=== PATIENT | female | born 1995 | race Caucasian/White ===

== ENCOUNTER 2017-10-05 13:50 | Emergency (ER) | payer BC ==
--- NOTE | 2017-10-05 14:27 | EDM.PDOC ---
ED HPI GENERAL MEDICAL PROBLEM - General Chief Complaint: ENT Problem Stated Complaint: SORE THROAT Time Seen by Provider: 10/05/17 14:22 Source of Information: Reports: Patient History Limitations: Reports: No Limitations - History of Present Illness INITIAL COMMENTS - FREE TEXT/NARRATIVE: HISTORY AND PHYSICAL: []22-year-old female presenting with pain to her throat and her left ear History of Present Illness: []Patient was seen at [facility] this morning. She was diagnosed with strep throat and ear infection started on amoxicillin 875 mg. Patient states that the pain is too much at this point and wants some relief . Review of Systems: As per history of present illness and below otherwise all systems reviewed and negative. Past medical history: As per history of present illness and as reviewed below otherwise noncontributory. Surgical history: As per history of present illness and as reviewed below otherwise noncontributory. Social history: No reported history of drug or alcohol abuse. Family history: As per history of present illness and as reviewed below otherwise noncontributory. Physical exam: Alert and oriented female acting age-appropriate she is speaking in full sentences very softly without shortness of breath. She is nontoxic in appearance HEENT: Atraumatic, normocehpalic, pupils reactive, negative for conjunctival pallor or scleral icterus, mucous membranes moist, throat mild erythema, neck supple, tender, trachea midline. Lungs: Clear to auscultation, breath sounds equal bilaterally, chest non tender. Anterior cervical adenopathy is easily palpable. Left tympanic membrane erythematous significant effusion. She material noted posterior of the tympanic membrane landmarks are not visualized. Mild erythema to canal. Right tympanic membrane slightly dull but landmarks were visualized. Heart: S1S2, regular, negative for clicks, rubs, or JVD. Abdomen: Soft, nondistended, nontender. Negative for masses or hepatossplenmegaly. Negative for costovertebral tenderness. Pelvis: Stable nontender. Genitourinary: Deferred. Rectal: Deferred Extremities: Atraumatic, negative for cords or calf pain. Neurovascular unremarkable. Neuro: Awake, alert, oriented. Cranial nerves II through XII unremarkable. Cerebellum unremarkable. Motor and sensory unremarkable throughout. Exam nonfocal. Diagnostics: [] Therapeutics: []Toradol 60 IM Liquid Tylenol Impression: []Otalgia Otitis media with effusion Strep throat Plan: [] Discharge home Cortisporin otic drops to left ear Definitive disposition and diagnosis as appropriate pending reevaluation and review of above. Onset: Gradual Duration: Day(s): (3) Location: Reports: Head, Abdomen Quality: Reports: Ache, Stabbing, Throbbing Severity: Moderate Improves with: Reports: None Worsens with: Reports: None Associated Symptoms: Reports: Fever/Chills - Related Data Allergies Allergy/AdvReac Type Severity Reaction Status Date / Time Sulfa (Sulfonamide Allergy Rash Verified 02/08/16 20:03 Antibiotics) Home Meds: Home Meds Hydrocort/Neomycin/Polymyxin B [Cortisporin Ophth Susp] 2 drop EARLF Q6H #1 bottle 10/05/17 [Rx] Past Medical History - Past Health History Medical/Surgical History: Denies Medical/Surgical History HEENT History: Reports: None Cardiovascular History: Reports: None Respiratory History: Reports: None Gastrointestinal History: Reports: None Genitourinary History: Reports: None PHYSICIAN PRACTICE ADMINISTRATOR History: Reports: None Endocrine/Metabolic History: Reports: None - Infectious Disease History Infectious Disease History: Reports: None - Past Surgical History HEENT Surgical History: Reports: None Musculoskeletal Surgical History: Reports: None ED ROS ENT - Review of Systems Review Of Systems: ROS reveals no pertinent complaints other than HPI. ED EXAM, ENT - Physical Exam Exam: See Below (see dictation) Course - Orders/Labs/Meds Meds: Medications Discontinued Medications Generic Name Dose Route Start Last Admin Trade Name Freq PRN Reason Stop Dose Admin Acetaminophen/Codeine Phosphate 5 ml 10/05/17 14:28 Tylenol/Codeine 120-12 Mg/5 Ml PO 10/05/17 14:29 ONETIME ONE Departure - Departure Time of Disposition: 14:30 Disposition: Home, Self-Care 01 Condition: Good Clinical Impression: Otitis media Qualifiers: Otitis media type: unspecified Chronicity: acute Qualified Code(s): H66.90 - Otitis media, unspecified, unspecified ear - Discharge Information Prescriptions: Hydrocort/Neomycin/Polymyxin B [Cortisporin Ophth Susp] 2 drop EARLF Q6H #1 bottle Instructions: Ear Drops, Adult, [id number], Otitis Media, Adult, [id number] Referrals: PCP,None [Primary Care Provider] - Forms: ED Department Discharge Additional Instructions: The following information is given to patients seen in the emergency department who are being discharged to home. This information is to outline your options for follow-up care. We provide all patients seen in our emergency department with a follow-up referral. The need for follow-up, as well as the timing and circumstances, are variable depending upon the specifics of your emergency department visit. If you don't have a primary care physician on staff, we will provide you with a referral. We always advise you to contact your personal physician following an emergency department visit to inform them of the circumstance of the visit and for follow-up with them and/or the need for any referrals to a consulting specialist. The emergency department will also refer you to a specialist when appropriate. This referral assures that you have the opportunity for followup care with a specialist. All of these measure are taken in an effort to provide you with optimal care, which includes your followup. Under all circumstances we always encourage you to contact your private physician who remains a resource for coordinating your care. When calling for followup care, please make the office aware that this follow-up is from your recent emergency room visit. If for any reason you are refused follow-up, please contact the [facility] emergency department at and asked to speak to the emergency department charge nurse. SHe was treated for the ear pain(otalgia) that you have been experiencing Prescription has been sent to your pharmacy for eardrops Liquid Tylenol would be easier for you to take at home he can alternate this with liquid ibuprofen every 3-4 hours Return to the emergency department should your symptoms worsen as directed and discussed
[2017-10-05] MEDS ORDERED: Acetaminophen/Codeine 120-12 MG/5 ML Soln 5 ML UD Cup PO ONE (14:28)
[2017-10-05] MEDS ORDERED: Ketorolac 60 MG/2 ML SDV IM ONE (14:33)
[2017-10-05 14:43] VITALS: BP 115/66
== END 2017-10-05 15:10 | disposition home or self-care (01) ==
LOC: MW.ED 13:50
DX: H66.90 Otitis media, unspecified, unspecified ear (principal)
CPT/HCPCS: 96372; 99283; A9270; J1885